=== PATIENT | female | born 1960 | race African-American/Black ===

== ENCOUNTER 2022-12-17 15:32 | Observation (INO) | payer BC ==
[~2022-12-17] VITALS: Ht 157.5 cm; Wt 68.9 kg
[2022-12-17 15:58] LABS: BASOPHILS % 0.4 % (0.0-1.0); EOSINOPHILS # (AUTO) 0.1 (0.0-0.4); EOSINOPHILS % 0.6 % (0.0-6.0); HEMATOCRIT 34.1 % (34.2-44.1); HEMOGLOBIN 10.6 g/dL (12.0-16.0); LYMPHOCYTES % 26.4 % (18.0-39.1); MEAN CORPUSCULAR HEMOGLOBIN 25.4 pg (28-32); MEAN CORPUSCULAR HGB CONC 31.1 g/dL (31-35); MEAN CORPUSCULAR VOLUME 81.8 fL (81-99); MONOCYTES # (AUTO) 1.1 (0.2-0.8); MONOCYTES % 14.5 % (4.4-11.3); NEUTROPHILS # (AUTO) 4.5 (2.1-6.9); NEUTROPHILS % 57.8 % (38.7-80.0); PLATELET COUNT 323 x10e3/uL (140-360); RED BLOOD COUNT 4.17 x10e6/uL (3.6-5.1); RED CELL DISTRIBUTION WIDTH 13.2 % (11.7-14.4)
[2022-12-17 16:14] LABS: ALBUMIN 3.2 g/dL (3.5-5.0); ALBUMIN/GLOBULIN RATIO 0.7 (0.8-2.0); ANION GAP 17.7 mmol/L (8-16); CALCIUM 9.6 mg/dL (8.4-10.2); CREATININE, SERUM 0.99 mg/dL (0.57-1.11)
[2022-12-17] MEDS ORDERED: SODIUM CHLORIDE 0.9% 1000ML 1,000 ML IV SCH (16:15)
[2022-12-17 16:17] LABS: POTASSIUM 2.7 mmol/L (3.5-5.1)
[2022-12-17] MEDS ORDERED: POTASSIUM CHLORIDE 20 MEQ TAB CR PO STA (16:22)
[2022-12-17] MEDS ORDERED: POTASSIUM CHLORIDE 20MEQ/100ML 100 ML IV ONE (16:30)
[2022-12-17 16:52] LABS: FREE THYROXINE INDEX 5.9061 (1.4-3.8); THYROID STIMULATING HORMONE 0.004 uIU/mL (0.350-4.940)
[2022-12-17] MEDS ORDERED: PROPRANOLOL HCL10 MG PO (17:21)
[2022-12-17] MEDS ORDERED: PROPYLTHIOURACI50 MG PO (17:23)
[2022-12-17] MEDS ORDERED: PROPRANOLOL HCL 10 MG TAB PO ONE (17:30)
[2022-12-17 17:51] LABS: MAGNESIUM 1.7 MG/DL (1.3-2.1); PHOSPHORUS 3.3 MG/DL (2.3-4.7)
[2022-12-17] MEDS: METHIMAZOLE 5 MG TAB PO SCH ×2 (17:52→22:04)
[2022-12-17] MEDS ORDERED: SODIUM CHLORIDE 0.9% 500ML 500 ML ONE (18:16)
[2022-12-17 19:50] VITALS: BP 134/82
[2022-12-17 20:00] VITALS: BP 134/83
[2022-12-17 21:57] VITALS: BP 134/82
[2022-12-17] MEDS ORDERED: LOSARTAN-HCTZ1 EAC1 (23:20)
[2022-12-17] MEDS ORDERED: AMLODIPINE BESY10 MG (23:20)
[2022-12-17] MEDS ORDERED: NAPROXEN500 MG (23:20)
[2022-12-17] MEDS ORDERED: ROSUVASTATIN CA10 MG (23:20)
[2022-12-18] VITALS: BP 120/61
[2022-12-18 05:51] LABS: BASOPHILS % 0.4 % (0.0-1.0); EOSINOPHILS # (AUTO) 0.1 (0.0-0.4); EOSINOPHILS % 1.6 % (0.0-6.0); HEMATOCRIT 31.4 % (34.2-44.1); HEMOGLOBIN 9.8 g/dL (12.0-16.0); LYMPHOCYTES # (AUTO) 1.9 (1.0-3.2); LYMPHOCYTES % 34.1 % (18.0-39.1); MEAN CORPUSCULAR HEMOGLOBIN 25.6 pg (28-32); MEAN CORPUSCULAR HGB CONC 31.2 g/dL (31-35); NEUTROPHILS # (AUTO) 2.6 (2.1-6.9); NEUTROPHILS % 46.5 % (38.7-80.0); PLATELET COUNT 280 x10e3/uL (140-360); RED BLOOD COUNT 3.83 x10e6/uL (3.6-5.1); RED CELL DISTRIBUTION WIDTH 13.2 % (11.7-14.4)
[2022-12-18 06:10] LABS: ANION GAP 16.1 mmol/L (8-16); CALCIUM 9.1 mg/dL (8.4-10.2); CREATININE, SERUM 0.73 mg/dL (0.57-1.11); POTASSIUM 3.1 mmol/L (3.5-5.1)
[2022-12-18 06:21] VITALS: BP 126/71
[2022-12-18] MEDS ORDERED: MAGNESIUM SULFATE 2GM/50ML IV ONE (08:15)
[2022-12-18 08:23] VITALS: BP 134/77
[2022-12-18] MEDS ORDERED: POTASSIUM CHLORIDE 10MEQ EA PO ONE (09:00)
[2022-12-18] MEDS ORDERED: MAGNESIUM SULFATE 2GM/50ML 50 ML IV ONE (09:00)
[2022-12-18] MEDS ORDERED: METOPROLOL TARTRATE 50 MG TAB PO SCH (09:00)
[2022-12-18] MEDS ORDERED: SODIUM CHLORIDE 0.9% 250ML 250 ML ONE (09:24)
[2022-12-18] MEDS: METHIMAZOLE 5 MG TAB PO SCH ×2 (09:38→15:12)
[2022-12-18] MEDS ORDERED: POTASSIUM PHOSPHATE 20 MM in SODIUM CHLORIDE 0.9% 250ML 250 ML IV ONE (11:00)
[2022-12-18 12:02] VITALS: BP 117/78
[2022-12-18 13:07] VITALS: BP 117/78
[2022-12-18] MEDS ORDERED: POTASSIUM CHLO10 ME1 PO (14:24)
[2022-12-18] MEDS ORDERED: METHIMAZOLE10 MG PO (14:26)
[2022-12-18] MEDS ORDERED: LOPRESSOR25 MG PO (14:26)
[2022-12-18 16:19] VITALS: BP 113/77
[2022-12-18 16:34] LABS: FREE T4 (FREE THYROXINE) 2.35 ng/dL (0.8-1.8); THYROID STIMULATING HORMONE 0.003 uIU/mL (0.350-4.940)
== END 2022-12-18 16:54 | disposition home or self-care (01) ==
LOC: ER 15:43 → ERHOLD 17:39 → MED/SURG 19:41
PROVIDERS: ADMIT Internal Medicine; ATTEND Internal Medicine
DX: E21.2 Other hyperparathyroidism (principal); E87.6 Hypokalemia; D64.9 Anemia, unspecified; I10 Essential (primary) hypertension; R00.0 Tachycardia, unspecified; M35.00 Sjogren syndrome, unspecified; Z88.6 Allergy status to analgesic agent; Z20.822 Contact with and (suspected) exposure to COVID-19; Z79.899 Other long term (current) drug therapy
CPT/HCPCS: 36415; 71045; 80048; 80053; 83735; 84100; 84436; 84439; 84443; 84479; 84481; 85025; 86376; 93005; 94799; 99284; G0378; J3475; J3480; J7030; J7040; J7050